=== PATIENT | male | born 1990 | race African-American/Black ===

== ENCOUNTER 2023-07-31 02:07 | Emergency (ER) | payer SELFPAY ==
[2023-07-31 02:10] VITALS: BP 158/79; PULSE 84; RESP 17; TEMP 36.2; O2SAT 100
--- NOTE | 2023-07-31 02:30 | ED.GENADULT ---
HPI - General Adult General Chief complaint: Headache Stated complaint: Migraine headache Time Seen by Provider: 07/31/23 02:19 History of Present Illness HPI narrative: this is a 32-year-old male presenting ED with chief headache. The patient has been having a pounding left-sided headache last 2 weeks head was not maximal in onset. No associated trauma or fevers. No visual changes. No nausea vomiting. Patient does not have a primary care physician Related Data Allergies Allergy/AdvReac Type Severity Reaction Status Date / Time No Known Allergies Allergy Verified 07/31/23 02:17 Exam Narrative: APPEARANCE: patient is in no apparent distress. Resting comfortably on the bed. Head: atraumatic. EYES: EOMI, NOSE: Atraumatic NECK: Trachea midline RESPIRATORY: No increased rate of breathing CARDIOVASCULAR: RRR, ABDOMINAL: Non-distended MUSCULOSKELETAl: No obvious deformities NEURO: Alert. Cranial nerves 2-12 grossly intact. Sensation light touch, motor function cerebellar function intact for 4 extremities. Gait exam was normal. SKIN:: Warm, dry. Normal color PSYCHIATRIC: Normal affect Course Vital Signs Vital signs: Vital Signs Temperature 97.2 F L 07/31/23 02:10 Pulse Rate 84 07/31/23 02:10 Respiratory Rate 17 07/31/23 02:10 Blood Pressure 158/79 H 07/31/23 02:10 Pulse Oximetry 100 07/31/23 02:10 Oxygen Delivery Room Air 07/31/23 02:10 Temperature 97.2 F L 07/31/23 02:10 Pulse Rate 84 07/31/23 02:10 Respiratory Rate 17 07/31/23 02:10 Blood Pressure 158/79 H 07/31/23 02:10 Pulse Oximetry 100 07/31/23 02:10 Oxygen Delivery Room Air 07/31/23 02:10 Medical Decision Making [facility] Narrative Medical decision making narrative: -Course: 32-year-old male presenting with left-sided headaches. Presentation consistent with migraines. Offered a migraine cocktail refused because he did not want a shot. Patient would like Motrin and Tylenol. He will then follow up with his primary care physician. Patient's headache was not sudden or maximal in onset. There are no focal deficits on exam. Subarachnoid hemorrhage is healthy unlikely this time. There is no history of fever neck is supple evaluation without meningismus. No angina this is felt to be unlikely. No traumatic history or signs of trauma evaluation. Risk factors for cerebral venous thrombosis reviewed. no visual acuity changes, cerebral venous thrombosis healthy unlikely at this time. No ocular signs of acute glaucoma. Patient's headache is felt to be benign cephalgia and reasonable for outpatient management. -Interventions: Motrin, Tylenol -Shared decision making / Disposition: Discharged Vital Signs Vital Signs: Vital Signs Temperature 97.2 F L 07/31/23 02:10 Pulse Rate 84 07/31/23 02:10 Respiratory Rate 17 07/31/23 02:10 Blood Pressure 158/79 H 07/31/23 02:10 Pulse Oximetry 100 07/31/23 02:10 Oxygen Delivery Room Air 07/31/23 02:10 Temperature 97.2 F L 07/31/23 02:10 Pulse Rate 84 07/31/23 02:10 Respiratory Rate 17 07/31/23 02:10 Blood Pressure 158/79 H 07/31/23 02:10 Pulse Oximetry 100 07/31/23 02:10 Oxygen Delivery Room Air 07/31/23 02:10 Discharge Plan Discharge Clinical Impression: Migraine Patient Disposition: Home, Self-Care Condition: Stable Instructions: Antibiotic Form, Acute Headache (ED) Additional Instructions: please use Motrin Tylenol for headaches. Please follow-up the primary care physician further management. If her headache becomes unbearable please return ED for re-evaluation. Prescriptions: New ibuprofen 800 mg tablet 800 mg PO TID PRN (Reason: pain) 7 Days Qty: 21 0RF acetaminophen 500 mg tablet 1,000 mg PO TID PRN (Reason: karine) 7 Days Qty: 42 0RF Follow-up/Referrals: PHYSICIAN,LABORATORY TECHNICAL SPECIALIST [Primary Care Provider] -
[2023-07-31] MEDS: ACETAMINOPHEN 500 MG TABLET 1000 MG PO (02:35)
[2023-07-31] MEDS: IBUPROFEN 400 MG TABLET 800 MG PO (02:35)
== END 2023-07-31 02:42 | disposition home or self-care (01) ==
PROVIDERS: Emergency Provider Emergency Medicine
DX: G43.909 Migraine, unspecified, not intractable, without status migrainosus (principal)
CPT/HCPCS: 99283; A9270